=== PATIENT | male | born 2000 | race Caucasian/White ===

== ENCOUNTER 2020-03-23 19:49 | Emergency (ER) | payer SELFPAY ==
[2020-03-23 19:51] VITALS: BP 115/73; PULSE 85; RESP 17; TEMP 36.4; O2SAT 98
--- NOTE | 2020-03-23 20:08 | ED.GENADULT ---
HPI - General Adult General Chief complaint: Wound/Laceration Stated complaint: foot injury Time Seen by Provider: 03/23/20 19:55 Source: patient Mode of arrival: ambulatory Limitations: no limitations History of Present Illness HPI narrative: Patient is a 19-year-old male who presents with red tender swollen toe along the lateral nail margin with history of paronychia notes aching pain worse with touch and palpation. Patient presents in no distress denies injury or trauma Review of Systems Review of Systems: All systems reviewed & are unremarkable except as noted in HPI and below PMFSH Social History Social History (Updated 03/23/20 @ 20:09 by Geoff Blum PA-C) Smoking status: Never smoker Gender identity (if verbalized by the patient): Male Exam Narrative: Exam Narrative: GENERAL: Well-appearing, well-nourished, and in no acute distress. HEAD: Normocephalic, atraumatic. EYES: PERRLA and EOMI. ENT: Nares clear, no rhinorrhea or epistaxis. Mucous membranes moist. EXTREMITIES: Normal range of motion. No edema. SKIN: Warm, dry, no rash. Patient with ingrown toenail along the lateral nail margin left great toe no lymphangitic streaking or circumferential swelling NEURO: No focal deficits. Alert and oriented x3. Neurovascularly intact PSYCH: Normal mood and affect. Course Course Emergency Course: Patient in the room in no distress aware of case findings treatment plan and diagnosis Vital Signs Vital signs: Vital Signs Temperature 97.6 F 03/23/20 19:51 Pulse Rate 85 03/23/20 19:51 Respiratory Rate 17 03/23/20 19:51 Blood Pressure 115/73 03/23/20 19:51 Pulse Oximetry 98 03/23/20 19:51 Temperature 97.6 F 03/23/20 19:51 Pulse Rate 85 03/23/20 19:51 Respiratory Rate 17 03/23/20 19:51 Blood Pressure 115/73 03/23/20 19:51 Pulse Oximetry 98 03/23/20 19:51 Medical Decision Making MDM Narrative Medical decision making narrative: Patients injury or pain is consistent with musculoskeletal etiology. No signs of neurological or vascular compromise on exam. Compartments and tisues are soft without signs of compartment syndrome. Pain is felt appropriate for further evaluation on an outpatient basis. Patient will be referred to podiatry Vital Signs Vital Signs: Vital Signs Temperature 97.6 F 03/23/20 19:51 Pulse Rate 85 03/23/20 19:51 Respiratory Rate 17 03/23/20 19:51 Blood Pressure 115/73 03/23/20 19:51 Pulse Oximetry 98 03/23/20 19:51 Temperature 97.6 F 03/23/20 19:51 Pulse Rate 85 03/23/20 19:51 Respiratory Rate 17 03/23/20 19:51 Blood Pressure 115/73 03/23/20 19:51 Pulse Oximetry 98 03/23/20 19:51 Discharge Plan Discharge Clinical Impression: Paronychia Patient Disposition: Home, Self-Care Condition: Stable Instructions: Antibiotic Form, Paronychia (ED) Additional Instructions: Wear the wear postop shoe with limited weight on the affected leg until able to bear weight without pain. Elevate the extremity above the level of the heart as often as possible. Pain medication as needed and directed. Follow-up with podiatry in the next 5 days. Clean wound with mild soapy water and apply antibiotic ointment 3 times daily. Return if symptoms worsen or concerns or any increase in redness swelling pain or fever over 100.5 Prescriptions: New acetaminophen [Tylenol Arthritis Pain] 650 mg tablet extended release 650 mg PO Q8H PRN (Reason: pain) Qty: 10 RF: 0 Follow-up/Referrals: PHYSICIAN NOT ON STAFF,NONSTAFF [Primary Care Provider] - Tommy Browning DPM [Physician] - Taty High DPM [Physician] - Surinder Zhao JR, MD [Physician] - Duane Yanes DPM [Physician] - Bill Trujillo DPM [Physician] - Gurdeep Gore DPM [Physician] - ,KEAGAN Ryan [Non-Staff] - Dinh Guillen DPM [Physician] - Dinh Morrell DPM [Physician] - Stand Alone Forms: Work/School Release IP
== END 2020-03-23 20:20 | disposition home or self-care (01) ==
LOC: ANHED 20:17
PROVIDERS: Emergency Provider Emergency Medicine
DX: L03.032 Cellulitis of left toe (principal)
CPT/HCPCS: 99283